=== PATIENT | female | born 1965 | race American Indian/Alaskan Native ===

== ENCOUNTER 2017-01-02 06:33 | Day surgery (SDC) | payer BC ==
[2016-12-26 09:07] VITALS: BMI 31.6
[2017-01-02 06:53] VITALS: O2SAT 100
[2017-01-02] MEDS ORDERED: Propofol 10 mg/ml Inj (20 ML) ONE (07:42)
[2017-01-02] MEDS ORDERED: Lidocaine 2% Inj (20ml) ONE (07:43)
[2017-01-02] MEDS ORDERED: Sodium Chloride 0.9% 1,000 ML IV SCH (08:45)
[2017-01-02 09:25] VITALS: BP 137/89; PULSE 69; RESP 16; TEMP 98.3
== END 2017-01-02 09:55 | disposition home or self-care (01) ==
LOC: ENDO 06:33
PROVIDERS: ATTEND Internal Medicine Gastroenterology
DX: Z12.11 Encounter for screening for malignant neoplasm of colon (principal); K64.0 First degree hemorrhoids; I10 Essential (primary) hypertension; Z80.3 Family history of malignant neoplasm of breast
CPT/HCPCS: 45378; 84703; J2704; J7040